=== PATIENT | female | born 1960 | race Caucasian/White ===

== ENCOUNTER 2019-09-12 10:23 | Emergency (ER) | payer BC ==
--- NOTE | 2019-09-12 11:06 | ED ---
Neurological HPI - HPI Summary HPI Summary: This patient is a 59 y/o female presenting to [facility] c/o visual disturbances since 0200 today. Patient reports she went to bed at around 0200 today after watching a couple of movies. She states she closed her eyes and suddenly it became bright. Patient then opened her eyes and couldn't see anything. Patient reports this episode of "blind moments" happened 3 times, each lasting about 5 seconds. After the third time patient states she tried to look for her night lights outside her door and was able to see light with her eyes open. She was exhausted and went to sleep. Upon waking up at 0800 this morning she reports her eyesight was blurry with her glasses on (patient needs glasses to see). Patient went to the family room and had double vision. Patient currently states she still has blurry vision and feels a little short of breath. Denies fever, confusion, chest pain. Patient sees an apprentice cook at [facility]. Home Medications Medication Instructions Recorded Confirmed Type Amoxicillin PO (*) [Amoxicillin 500 mg PO BID 09/12/19 09/12/19 History 500 MG CAP*] Aspirin EC TAB* [Ecotrin EC Low 81 mg PO DAILY 09/12/19 09/12/19 History Dose 81 MG*] Cholecalciferol CAP/TAB(NF) 5,000 unit PO DAILY 09/12/19 09/12/19 History [Vitamin D3 CAP/TAB (NF)] Cyanocobalamin INJ * [Vitamin B12 1,000 mcg IM .EVERY OTHER WEEK 09/12/19 History INJ *] EPINEPHrine [Epipen-Jr 2-Kobe] 0.15 mg IM ONCE PRN 09/12/19 09/12/19 History FLUoxetine CAP* [PROzac CAP*] 10 mg PO DAILY 09/12/19 09/12/19 History L.acidoph,Paracasei, B.lactis 1 each PO DAILY 09/12/19 09/12/19 History [Probiotic] Lansoprazole CAP (NF) [Prevacid 15 mg PO DAILY 09/12/19 09/12/19 History CAP (NF)] Levalbuterol Tartrate 45 mcg INH DAILY PRN 09/12/19 09/12/19 History [Levalbuterol Tartrate Hfa] Rosuvastatin (NF) [Crestor (NF)] 5 mg PO EVERY OTHER DAY 09/12/19 09/12/19 History diphenhydrAMINE HCl [Benadryl 25 - 50 mg PO DAILY PRN 09/12/19 09/12/19 History Allergy 25 MG CAP] - History of Current Complaint Chief Complaint: EDEyeProblem Stated Complaint: STROKE SYMPTOMS PER PT Hx Obtained From: Patient Onset/Duration: Started hours ago, Still Present Timing: Sudden Onset Current Severity: Mild Pain Intensity: 0 - denies pain Pain Scale Used: 0-10 Numeric Character: Visual Changes Aggravating: Nothing Alleviating: Nothing Associated Signs and Symptoms: Positive: Visual Changes, Shortness of Breath. Negative: Confusion, Loss of Consciousness, Fever, Chest Pain - Allergy/Home Medications Allergies/Adverse Reactions: Allergies Allergy/AdvReac Type Severity Reaction Status Date / Time clarithromycin [From Biaxin] Allergy Intermediate Shortness Verified 09/12/19 10 :35 of Breath sertraline Allergy Intermediate Shortness Verified 09/12/19 10:35 of Breath tetracycline Allergy Mild Rash Verified 09/12/19 10:35 Home Medications: Home Medications Amoxicillin PO (*) [Amoxicillin 500 MG CAP*] 500 mg PO BID 09/12/19 [History Confirmed 09/12/19] Aspirin EC TAB* [Ecotrin EC Low Dose 81 MG*] 81 mg PO DAILY 09/12/19 [History Confirmed 09/12/19] Cholecalciferol CAP/TAB(NF) [Vitamin D3 CAP/TAB (NF)] 5,000 unit PO DAILY [History Confirmed 09/12/19] Cyanocobalamin INJ * [Vitamin B12 INJ *] 1,000 mcg IM .EVERY OTHER WEEK [History Confirmed 09/12/19] EPINEPHrine [Epipen-Jr 2-Kobe] 0.15 mg IM ONCE PRN 09/12/19 [History Confirmed ] FLUoxetine CAP* [PROzac CAP*] 10 mg PO DAILY 09/12/19 [History Confirmed ] L.acidoph,Paracasei, B.lactis [Probiotic] 1 each PO DAILY 09/12/19 [History Confirmed 09/12/19] Lansoprazole CAP (NF) [Prevacid CAP (NF)] 15 mg PO DAILY 09/12/19 [History Confirmed 09/12/19] Levalbuterol Tartrate [Levalbuterol Tartrate Hfa] 45 mcg INH DAILY PRN 09/12/19 [History Confirmed 09/12/19] Rosuvastatin (NF) [Crestor (NF)] 5 mg PO EVERY OTHER DAY 09/12/19 [History Confirmed 09/12/19] diphenhydrAMINE HCl [Benadryl Allergy 25 MG CAP] 25 - 50 mg PO DAILY PRN [History Confirmed 09/12/19] PMH/Surg Hx/FS Hx/Imm Hx Endocrine/Hematology History: Denies: Hx Diabetes Cardiovascular History: Denies: Hx Pacemaker/ICD Respiratory History: Reports: Hx Asthma History: Denies: Hx Dialysis, Hx Renal Disease Musculoskeletal History: Denies: Hx Rheumatoid Arthritis, Hx Osteoporosis Sensory History: Denies: Hx Hearing Aid Psychiatric History: Denies: Hx Panic Disorder - Cancer History Cancer Type, Location and Year: SQUAMOUS CELL Hx Chemotherapy: No Hx Radiation Therapy: No - Surgical History Surgical History: Yes Surgery Procedure, Year, and Place: BREAST LUMP REMOVED, SQUAMOUS CELL REMOVED FROM LEFT ARM - Immunization History Immunizations Up to Date: Yes Infectious Disease History: No Infectious Disease History: Denies: Traveled Outside the in Last 30 Days - [place] 08/29 - Social History Alcohol Use: Rare Substance Use Type: Reports: None Hx Tobacco Use: No Smoking Status (MU): Former Smoker Review of Systems Negative: Fever Eyes: Other - POSITIVE: visual changes Positive: Blurred Vision Negative: Chest Pain Positive: Shortness Of Breath Neurological/Mental Status: Other - NEGATIVE: confusion All Other Systems Reviewed And Are Negative: Yes Physical Exam - Summary Physical Exam Summary: VITAL SIGNS: Reviewed. GENERAL: Patient is a well-developed and nourished female who is lying comfortable in the stretcher. Patient is not in any acute respiratory distress. HEAD AND FACE: No signs of trauma. No ecchymosis, hematomas or skull depressions. No sinus tenderness. EYES: PERRLA, EOMI x 2, No injected conjunctiva, no nystagmus. No photophobia. EARS: Hearing grossly intact. Ear canals and tympanic membranes are within normal limits. MOUTH: Oropharynx within normal limits. NECK: Supple, trachea is midline, no adenopathy, no JVD, no carotid bruit, no c- spine tenderness, neck with full ROM. No meningeal signs, no Kernig's or brudzinskis signs. CHEST: Symmetric, no tenderness at palpation. LUNGS: Clear to auscultation bilaterally. No wheezing or crackles. CVS: Regular rate and rhythm, S1 and S2 present, no murmurs or gallops appreciated. ABDOMEN: Soft, non-tender. No signs of distention. No rebound, no guarding, and no masses palpated. Bowel sounds are normal. EXTREMITIES: FROM in all major joints, no edema, no cyanosis or clubbing. NEURO: Alert and oriented x 3. No acute neurological deficits. Speech is normal and follows commands. SKIN: Dry and warm. GCS: 15 Triage Information Reviewed: Yes Vital Signs On Initial Exam: Initial Vitals Temp Pulse Resp BP Pulse Ox 99.3 F 95 16 139/91 100 09/12/19 10:29 09/12/19 10:29 09/12/19 10:29 09/12/19 10:29 09/12/19 10:29 Vital Signs Reviewed: Yes Procedures - Sedation Patient Received Moderate/Deep Sedation with Procedure: No Diagnostics - Vital Signs Vital Signs Temp Pulse Resp BP Pulse Ox 09/12/19 10:29 99.3 F 95 16 139/91 100 - Laboratory Result Diagrams: 09/12/19 11:18 09/12/19 11:18 Lab Statement: Any lab studies that have been ordered have been reviewed, and results considered in the medical decision making process. - CT Brain CT CT Interpretation Completed By: Radiologist Summary of CT Findings: IMPRESSION: No acute intracranial abnormality by CT. Dr. Gill has reviewed this report. - EKG 11:25 Cardiac Rate: NL - at 81 bpm EKG Rhythm: Sinus Rhythm EKG Comparison: No Significant Change - unchanged from prior EKG on 02/05/12. Summary of EKG Findings: EKG at 1125 shows normal sinus rhythm at a rate of [address] elevations. Unchanged when compared to prior EKG on 02/05/12. This EKG was interpreted and reviewed by ED physician. Re-Evaluation - Re-Evaluation First Eval Re-Evaluation Time: 11:22 Comment: PAULA Delgado, reports visual acuity is 20/40 in both eyes. Course/Dx - Course Assessment/Plan: This patient is a 59 y/o female presenting to [facility] c/o visual disturbances since 0200 today. Patient reports she went to bed at around 0200 today after watching a couple of movies. She states she closed her eyes and suddenly it became bright. Patient then opened her eyes and couldn't see anything. Patient reports this episode of "blind moments" happened 3 times, each lasting about 5 seconds. After the third time patient states she tried to look for her night lights outside her door and was able to see light with her eyes open. She was exhausted and went to sleep. Upon waking up at 0800 this morning she reports her eyesight was blurry with her glasses on (patient needs glasses to see). Patient went to the family room and had double vision. Patient currently states she still has blurry vision and feels a little short of breath. Denies fever, confusion, chest pain. Patient sees an apprentice cook at [facility]. In the ED course the patient was placed in a shirring machine operator automatic , IV access was obtained. Past medical records were reviewed. Blood test w/o a significant abnormality except for alkaline phosphatase of 110. Head CT impression: No acute intracranial abnormality. Visual acuity: Right eye 20/40. Left eye 20/40 and bilateral 20/40. At this time the patient is asymptomatic. Therefore I made an appointment with ophthalmology Dr. Andrews and the patient will be discharged home with follow-up tomorrow morning with ophthalmology at 10 :30 AM. She was given instructions to return to the emergency department if she develops any other symptom. The patient understands and agrees. At this point, I discussed all the findings and test results with the patient. Patient was instructed to return to the emergency room immediately if any of the symptoms return or worsen. Plan of care was discussed with the patient and the patient understands and agrees. All questions were answered at patient satisfaction. Patient understands and agrees. Neurological exam before discharge: Patient is alert and oriented x 3. No acute neurological deficits. Patient's vital signs are stable. Patient is to follow up with PCP in the next 2 3 days. Patient understands and agrees. The plan of care was discussed with the patient and the patient understands and agrees with the plan of care. All questions were answered at patient satisfaction. There were no further complaints or concerns. - Differential Dx Differential Diagnoses Neuro: Positive: Cerebrovascular Accident, Headache, Hemorrhage, Hypertension, Medication Reaction, Transient Ischemic Attack - Diagnoses Provider Diagnoses: Visual changes Discharge ED - Sign-Out/Discharge Documenting (check all that apply): Patient Departure - Discharge - Discharge Plan Condition: Stable Disposition: HOME Patient Education Materials: Blurred Vision (ED) Referrals: Leeanna Teresa MD [Primary Care Provider] - Molly Andrews [Medical Doctor] - Additional Instructions: You have an appointment tomorrow 09/13/19 st 10:[address] Andrews, cabinet abrasive sandblaster. RETURN TO THE ED FOR ANY NEW OR WORSENING SYMPTOMS. - Billing Disposition and Condition Condition: STABLE Disposition: Home - Attestation Statements Document Initiated by Scribe: Yes Documenting Scribe: Jennifer Ortiz Provider For Whom Virgil is Documenting (Include Credential): Tani Gill MD Scribe Attestation: Jennifer Peguero, scribed for Tani Gill MD on 09/14/19 at 0349. Scribe Documentation Reviewed: Yes Provider Attestation: The documentation as recorded by the Jennifer rios accurately reflects the service I personally performed and the decisions made by me, Tani Gill MD Status of Scribe Document: Viewed
[2019-09-12 11:27] LABS: ABS Eosinophils 0.3 10^3/ul (0-0.6); ABS Lymphocytes 1.7 10^3/ul (1.0-4.8); ABS Monocytes 0.5 10^3/ul (0-0.8); ABS Neutrophils 3.5 10^3/ul (1.5-7.7); Eosinophil % 4.8 %; Hematocrit 40 % (35-47); Hemoglobin 13.3 g/dL (12.0-16.0); Lymphocyte % 28.6 %; Mean Corpuscular HGB Conc 34 g/dL (31-36); Mean Corpuscular Hemoglobin 29 pg (27-31); Mean Corpuscular Volume 85 fL (80-97); Mean Platelet Volume 7.3 fL (7.4-10.4); Nucleated Red Blood Cells % 0.1; Platelet Count 321 10^3/uL (150-450); Red Blood Count 4.64 10^6 /uL (3.70-4.87); Red Cell Distribution Width 15 % (10-15)
[2019-09-12 11:38] LABS: INR 1.04 (0.82-1.09)
[2019-09-12 11:48] LABS: Albumin 4.6 g/dL (3.2-5.2); Albumin/Globulin Ratio 1.8 (1-3); Calcium 9.8 mg/dL (8.6-10.3); EGFR African American 89.1 (>60); EGFR Non-African American 73.7 (>60); Globulin 2.6 g/dL (2-4); HDL Cholesterol 74.2 mg/dL; Potassium 3.6 mmol/L (3.5-5.0); Total Bilirubin 0.5 mg/dL (0.2-1.0); Total Protein 7.2 g/dL (6.4-8.9)
[2019-09-12 12:32] LABS: Urine Appearance Clear; Urine Bilirubin Negative (Negative); Urine Blood Negative (Negative); Urine Color Straw; Urine Glucose Negative (Negative); Urine Ketones Trace (Negative); Urine Nitrite Negative (Negative); Urine Protein Negative (Negative); Urine Specific Gravity 1.005 (1.010-1.030); Urine Urobilinogen Negative (Negative)
[2019-09-12 12:38] LABS: Urine Bacteria Absent (Absent); Urine Red Blood Cell Trace(0-2/hpf) (Absent); Urine Squamous Epithelial Cell Present (Absent); Urine White Blood Cell Trace(0-5/hpf) (Absent)
[2019-09-12 14:05] VITALS: BP 128/72
== END 2019-09-12 14:21 | disposition home or self-care (01) ==
LOC: ED 10:23
DX: H53.8 Other visual disturbances (principal); J45.909 Unspecified asthma, uncomplicated; Z85.828 Personal history of other malignant neoplasm of skin; Z87.891 Personal history of nicotine dependence; Z79.82 Long term (current) use of aspirin; Z79.899 Other long term (current) drug therapy; Z88.1 Allergy status to other antibiotic agents; Z88.8 Allergy status to other drugs, medicaments and biological substances
CPT/HCPCS: 36415; 70450; 80053; 80061; 81003; 81015; 83605; 84484; 85025; 85610; 86850; 86900; 86901; 87086; 93005; 99283